=== PATIENT | male | born 1945 | race Caucasian/White ===

== ENCOUNTER 2022-06-25 09:51 | Inpatient (IN) ==
[2022-06-25 11:02] LABS: Partial Thromboplastin Ratio 0.9; Partial Thromboplastin Time 25.4 Seconds (21.0-31.0); Prothrombin Time 10.6 Seconds (9.0-12.0)
--- NOTE | 2022-06-25 11:02 | XRay Report ---
XR chest 1V portable HISTORY: Atypical Chest pain, nonspecific COMPARISON: Chest 10/22/2015. FINDINGS: No pneumothorax. No pleural effusions. The cortex remains enlarged. No new focal lung conso lidations to suggest a pneumonia. No evidence for pulmonary edema. There are poststernotomy changes. IMPRESSION: Stable cardiomegaly. Otherwise, no acute process within the chest. ACT 112: Negative or not required by law. Electronically signed by: Ori Delarosa M.D. 06/25/2022 11:01 AM
[2022-06-25 11:10] LABS: Albumin Globulin Ratio 1.1 (0.9-2); Albumin Level 4.1 gm/dl (3.4-5.0); BUN Creatinine Ratio 17.9 (10-20); Bilirubin,Total 0.5 mg/dl (0.2-1.0); Calcium 9.9 mg/dl (8.5-10.1); Creatinine Clr Calc Pharmacy 70.1 ml/min; Est GFR (African American) 89.1 ml/min; Est GFR (Non-African American) 76.9 ml/min; Globulin 3.8 gm/dl (2.5-4.0); Total Protein 7.9 gm/dl (6.0-8.3)
[2022-06-25 11:37] LABS: Basophils # (auto) 0.01 K/uL (0-0.2); Basophils % (auto) 0.1 %; Hematocrit (blood only) 40.5 % (40.1-51.0); Immature Granulocytes # (auto) 0.07 K/uL (0.00-0.02); Immature Granulocytes % (auto) 0.6 %; Lymphocytes # (auto) 1.62 K/uL (1.2-3.4); Lymphocytes % (auto) 14.5 %; Mean Corpuscular Hemoglobin 31.2 pg (25.0-34.0); Mean Corpuscular Hgb Conc 34.6 g/dL (32.0-36.0); Mean Corpuscular Volume 90.2 fL (80.0-100.0); Mean Platelet Volume 10.3 fL (9.4-12.4); Monocytes # (auto) 0.83 K/uL (0.24-0.82); Monocytes % (auto) 7.4 %; Neutrophils # (auto) 8.62 K/uL (1.4-6.5); Neutrophils % (auto) 77.4 %; Platelet Count 208 K/uL (130-400); RDW Coefficient of Variation 14.4 % (11.5-14.5); RDW Standard Deviation 48.1 fL (36.4-46.3); Red Blood Count 4.49 M/uL (4.63-6.08); White Blood Count 11.15 K/ul (4.8-10.8)
[2022-06-25 12:01] LABS: Troponin I High Sensitivity 1205.7 pg/ml (0-20)
--- NOTE | 2022-06-25 13:02 | History & Physical Report ---
Date of Service June 25, 2022 Assessment & Plan (1) Elevated troponin I level: Plan: Patient is 76 y/o M with PMH CAD s/p CABG x 4 in 2016 at [facility], mitral & aortic insufficiency, carotid artery stenosis, HTN, dyslipidemia, pre-diabetes, asthma, BPH, neuropathy, gout, obesity presented to ER secondary to abnormal labs - elevated outpatient Troponin T level of 405 from 06/24/22. 5-day history of URI symptoms. Denies chest pain In ER vital stable. Initial high-sensitivity troponin 1205. EKG sinus rhythm, rate 66, T wave inversion inferior leads, T wave abnormality anterior leads per my review. DDx: Demand ischemia, ACS, myocarditis Repeat EKG in am Will trend troponin Echo Continue aspirin, atorvastatin, and metoprolol succinate Cardiology consult. Recommends IV heparin for 48 hours (2) COVID-19: Plan: 5 days of chills, body aches, headache, nasal congestion, sore throat, brown productive cough, generalized weakness. History to COVID-19 vaccinations, no boosters Seen urgent care clinic yesterday and diagnosed with suspected COVID-19, pneumonia and was started on Z-Bladimir, prednisone, albuterol In ER positive COVID-19 PCR. Negative RSV and influenza PCR Not hypoxic CXR: No acute infiltrate DDx: Pneumonia Isolation precautions Blood cultures pending Procalcitonin pending Start Rocephin, doxycycline Dexamethasone daily incentive spirometer, flutter valve Supplemental oxygen as needed. Patient not currently hypoxic (3) CAD (coronary artery disease), [place] coronary artery: Plan: S/p CABG Continue aspirin, atorvastatin, metoprolol succinate Work-up as above (4) HTN (hypertension): Plan: Stable Continue metoprolol succinate (5) Dyslipidemia: Plan: Continue atorvastatin, ezetimibe (6) Intermittent asthma: Plan: Albuterol as needed (7) Gout: Plan: Continue allopurinol DVT Prophylaxis On IV Heparin Full Code as per discussion with pt Follows with Dr Torres for routine care Pt was seen and care coordinated with Dr Ellis. See addendum I spent total of 80 minutes of reviewing notes, outpatient records, labs, medications, coordinating, documenting, and providing care for this patient excluding time spent in the performance of separately billed services. History of Present Illness Chief Complaint: Abnormal labs Primary Care Provider: Jaycob Torres DO Patient is 76 y/o M with PMH CAD s/p CABG x 4 in 2016 at [facility], mitral & aortic insufficiency, carotid artery stenosis, HTN, dyslipidemia, pre-diabetes, asthma, BPH, neuropathy, gout, obesity presented to ER secondary to abnormal labs. Patient states on 06/20/2022 had onset of chills, body aches, headache, nasal congestion, sore throat, cough, generalized weakness. Reports cough productive of brown-colored sputum. Also reports "burning sensation to lungs" for the past 5 days. Denies any noted overt shortness of breath but feels like he has intermittent shallow breathing. Denies other chest pain. States has had 3 days of loose stools which has since resolved. Denies nausea, vomiting, abdominal pain. Denies palpitations, diaphoresis. He was seen at urgent care yesterday and had troponin level drawn. Troponin T result was 405. He was called today and told to go to ER for elevated troponin. He also had COVID-19 swab yesterday, however results are not available at this time for review. He was diagnosed with suspected COVID-19 and possible pneumonia and was started on Z-pack, prednisone 40mg po daily, and albuterol inhaler. Patient states initial illness onset he used Tylenol for one day and then switched to taking aspirin twice daily for fever and myalgias with some relief. Denies any known ill contacts, however was sitting in ER waiting room with his as a patient on 06/19/22 and is concerned may have caught something there. Reports 2 COVID-19 vaccines, no boosters. States had influenza vaccine this season. 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 Denies N/V, melena, hematochezia, syncope, vision changes, neck pain, orthopnea, palpitations, choking, otalgia, abdominal pain, paresthesias, extremity edema, rashes, dysuria, hematuria. Allergies Allergy/AdvReac Type Severity Reaction Status Date / Time lisinopril Allergy angioedmea Verified 06/25/22 12:51 rosuvastatin [From Crestor] AdvReac myalgias Verified 06/25/22 12:51 Acarides (Mites) Allergy Intermediate CONGESTION, Uncoded 10/22/15 13:48 ITCHY EYES, SNEEZING. Home Medications Medication Instructions Recorded Confirmed Type albuterol sulfate 90 mcg/actuation 2 puff inhalation Q4H PRN 06/25/22 06/25/22 History aerosol inhaler Shortness Of Breath Or Wheezing allopurinol 300 mg tablet 300 mg PO DAILY 06/25/22 06/25/22 History aspirin 81 mg tablet,delayed 81 mg PO DAILY 06/25/22 06/25/22 History release atorvastatin 80 mg tablet 80 mg PO DAILY 06/25/22 06/25/22 History azithromycin 250 mg tablet 250 mg PO DAILY 06/25/22 06/25/22 History ezetimibe 10 mg tablet 10 mg PO DAILY 06/25/22 06/25/22 History metoprolol succinate 100 mg 100 mg PO DAILY 06/25/22 06/25/22 History tablet,extended release 24 hr nitroglycerin 0.4 mg sublingual 0.4 mg sublingual UD 06/25/22 06/25/22 History tablet prednisone 20 mg tablet 40 mg PO DAILY 06/25/22 06/25/22 History Past Med/Surg History Medical History Aortic valve insufficiency CAD (coronary artery disease) Carotid stenosis Dyslipidemia Gout Hypertension Intermittent asthma Mitral insufficiency Surgical History Hx of CABG 2016. CABG x 4. [facility] Family History (Updated 06/25/22 @ 21:55 by Kaye Nixon PA-C) Other Cancer Diabetes Social History Smoking Status: Former smoker Tobacco Type: Cigarettes Preferred Language: Icelandic Communication Ability: Effective Manufacturing Engineering Technician Required: No Beliefs That Will Affect Care: None Current Living Situation: Spouse Feels Safe at Home: Yes Safety Concerns: Feels Safe At This Time Assistive Devices: None Review of Systems Review of Systems: All systems reviewed & are unremarkable except as noted in HPI & below Physical Exam Physical Exam: General: no distress, overweight Head: normocephalic, atraumatic Eyes: conjunctiva non-injected, anicteric ENT: normal inspection external ears, nose, mucous membranes moist Neck: supple, trachea midline Lungs: clear, no respiratory distress, no wheezing/rhonchi/rales CV: RRR, no murmur, no JVD, no pretibial edema Abd: normal BS, soft, non-tender Ext: no cyanosis, no calf tenderness Neuro: A&O x 3, no focal deficits noted, normal affect Skin: warm, dry Results & Data Results & Data ([facility]) Vital Signs (Past 12 Hours) Vital Signs Temp Pulse Resp BP Pulse Ox O2 Del Method 06/25/22 12:00 60 16 94 Room Air 06/25/22 12:00 134/78 06/25/22 11:30 62 20 92 Room Air 06/25/22 11:30 137/80 06/25/22 11:00 65 16 06/25/22 11:00 159/98 H 06/25/22 10:18 36.2 C L 66 20 147/93 H 95 Room Air Laboratory Results Short CBC 06/25/22 06/25/22 Range/Units 10:40 11:15 WBC Cancelled 11.15 H Hgb Cancelled 14.0 Hct Cancelled 40.5 Plt Count Cancelled 208 BMP 06/25/22 10:40 Sodium 137 Potassium 4.0 Chloride 102 Carbon Dioxide 26 BUN 17 Creatinine 0.95 Glucose 104 H Calcium 9.9 Liver Function 06/25/22 Range/Units 10:40 Total Bilirubin 0.5 (0.2-1.0) mg/dl AST 46 H (13-39) U/L ALT 32 (7-52) U/L Alkaline Phosphatase 90 (34-104) U/L Albumin 4.1 (3.4-5.0) gm/dl Diagnostic Findings Chest X-Ray 06/25/22 10:21 XR chest 1V portable HISTORY: Atypical Chest pain, nonspecific COMPARISON: Chest 10/22/2015. FINDINGS: No pneumothorax. No pleural effusions. The cortex remains enlarged. No new focal lung consolidations to suggest a pneumonia. No evidence for pulmonary edema. There are poststernotomy changes. IMPRESSION: Stable cardiomegaly. Otherwise, no acute process within the chest. ACT 112: Negative or not required by law. Electronically signed by: Ori Delarosa M.D. 06/25/2022 11:01 AM Supervising Physician Co-Signing Physician Notes Patient seen and examined by me, care coordinated with Fer Nixon PA-C, please refer to her note above for further detail. Pt is 76 y/o M with CAD s/p CABG x 4 in 2016 at [facility], mitral & aortic insufficiency, carotid artery stenosis, HTN, dyslipidemia, pre-diabetes, asthma, who presents from urgent care center due to elevated troponin. Patient had upper respiratory symptoms for past 5 days, reported burning sensation in lungs. However no chest pain. Patient found to be COVID-19 positive. Currently sitting up in bed, in no acute distress. He is awake alert oriented answers appropriately. On physical exam, heart sounds are regular. Lungs are mostly clear to auscultation, minimal crackles at left base. No wheezing. Abdomen is soft nontender nondistended. There is no significant lower extremity edema noted. Patient is moving extremities. Skin is warm dry well-perfused. Will treat with antibiotics for pneumonia, steroid for COVID-19. Given elevated troponin, discussed with cardiology, started on IV heparin for 48 hours. Patient is concerned about taking care of his , and would like to be discharged home as soon as safely possible. MD Rhonda
[2022-06-25] MEDS ORDERED: ASPIRIN 81 MG CHEW PO STA (13:50)
[2022-06-25] MEDS ORDERED: ASPIRIN CHEW 324 MG ONE (13:54)
--- NOTE | 2022-06-25 13:59 | Emergency Department Note ---
Impression & Plan Non-ST elevation (NSTEMI) myocardial infarction ED Provider Note INFORMANT: Patient ED PROVIDER(S): Wyatt Aldana DO CHIEF COMPLAINT: Elevated troponin PLAN: Disposition: Hospital admission Condition: Good Outpatient prescription management: none Referral: I spoke with the hospitalist, who will see the patient for admission/observation and further evaluation and consultation. MEDICAL DECISION MAKING: This is a 76-year-old male who presents to the ED with a chief complaint of an elevated troponin. The patient was seen at an outpatient urgent care yesterday and had a work-up for generalized weakness and cold symptoms. A troponin was ordered and it was elevated. I did review the [place] records from yesterday's visit. The patient troponin was 405. For this reason he was contacted today and told to come to the emergency department. He states that he was prescribed a Z-Bladimir as well as some prednisone for his upper respiratory infectious symptoms. He currently is only complaining of feeling a little weak. Denies any chest pains or shortness of breath at this time. His physical exam was unremarkable. His vital signs are stable. His EKG showed normal sinus rhythm at a rate of 66 with some T wave inversions inferiorly. Troponin was 1205. CBC was unremarkable. Chemistry panel was unremarkable. No significant anemia or electrolyte abnormality. I spoke with the hospitalist about the patient. The patient will be seen by the hospitalist for further inpatient evaluation and care. Triage Nursing notes reviewed. Vital Signs: reviewed Prior /Outside records reviewed: none Differential diagnosis: Differential includes acute coronary syndrome, myocardial infarction, CVA, TIA, anemia, infection, pneumonia, UTI, pyelonephritis, poor nutrition, dehydration, electrolyte disturbance,hypoglycemia. Diagnostics, as interpreted by me: 12 lead ECG: Normal sinus rhythm at a rate of 66 with inferior T wave inversions. No ST elevation. No PVCs. Normal QTC. Cardiac Monitoring: Normal sinus rhythm Medical decision rules: none Imaging studies: Chest x-ray: No acute disease. No pneumonia or pneumothorax. Procedures: none. Critical care: none. HPI: This is a 76-year-old male who presents to the ED with a chief complaint of an elevated troponin. The patient was seen at an outpatient urgent care yesterday and had a work-up for generalized weakness and cold symptoms. A troponin was ordered and it was elevated. I did review the [facility] records from yesterday's visit. The patient troponin was 405. For this reason he was contacted today and told to come to the emergency department. He states that he was prescribed a Z-Bladimir as well as some prednisone for his upper respiratory infectious symptoms. He currently is only complaining of feeling a little weak. PAST MEDICAL HISTORY: See Below PAST SURGICAL HISTORY: See Below SOCIAL HISTORY: See Below HOME MEDICATIONS: See Below ALLERGIES: See Below VITALS: See Below PHYSICAL EXAMINATION: CONSTITUTIONAL/VITAL SIGNS: Reviewed GENERAL: Non-toxic in appearance. INTEGUMENTARY: Warm, dry, and [place]. HEAD: Normocephalic. EYES: without scleral icterus. ENT/OROPHARYNX: clear and moist. RESPIRATORY: No increased work of breathing. Lungs clear. CARDIOVASCULAR: Regular rate. Regular rhythm. GI/ABDOMEN: Soft and nontender. . EXTREMITIES: Normal BACK: Normal. NEUROLOGICAL: Intact without focal deficits. PSYCHIATRIC: Normal affect. MUSCULOSKELETAL: Normal. TRIAGE NURSING DOCUMENTATION REVIEWED. Past Med/Surg History Social History Smoking Status: Former smoker Tobacco Type: Cigarettes Feels Safe at Home: Yes Allergies Allergies Allergy/AdvReac Type Severity Reaction Status Date / Time lisinopril Allergy angioedmea Verified 06/25/22 12:51 rosuvastatin [From Crestor] AdvReac myalgias Verified 06/25/22 12:51 Acarides (Mites) Allergy Intermediate CONGESTION, Uncoded 10/22/15 13:48 ITCHY EYES, SNEEZING. Home Meds Home Medications Medication Instructions Recorded Confirmed Allopurinol (Zyloprim *) 100 mg PO DAILY ##0 09/19/06 ATORVASTATIN (LIPITOR) 20 mg PO DAILY #0 tabs 10/22/15 Albuterol Inhaler (VENTOLIN 2 puff inhalation QID PRN 10/22/15 INHALER) SOB/Wheezing #5 Inhalers CHOLECALCIFEROL (VITAMIN D3) 1 tab PO DAILY 90 days #90 tabs 10/22/15 Coenzyme Q10 (Ubidecarenone) 200 mg PO DAILY ##0 10/22/15 (Coq-10 100 mg) Lisinopril 2.5 mg PO DAILY ##0 10/22/15 Loratadine (Claritin) 10 mg PO DAILY #0 tabs 05/04/16 VITAMIN B CMPLX/VITC/FOLIC AC 1 cap PO DAILY 90 days #90 caps 10/22/15 (Nephrocaps) ASPIRIN (ASPIR-81) 1 tab PO DAILY 30 days #30 tabs 12/25/15 Results & Data (ED) Vital Signs Vital Signs - 24 hr 06/25/22 10:18 06/25/22 11:00 06/25/22 11:00 Temperature 36.2 C L Temperature Source Temporal Artery Scan Pulse Rate 66 65 Pulse Rate from SpO2 Sensor Respiratory Rate 20 16 Respiratory Effort / Characteristics Non-Labored Respiratory Depth Normal Blood Pressure 147/93 H 159/98 H Blood Pressure Mean 111 118 Pulse Oximetry 95 Oxygen Delivery Method Room Air Sepsis Recent Fever Within 48 Hours No Sepsis New/Unexplained Change in Mental Status N/A Sepsis Action Taken by Nursing No Action Required 06/25/22 11:30 06/25/22 11:30 06/25/22 12:00 Temperature Temperature Source Pulse Rate 62 Pulse Rate from SpO2 Sensor 62 Respiratory Rate 20 Respiratory Effort / Characteristics Respiratory Depth Blood Pressure 137/80 134/78 Blood Pressure Mean 99 96 Pulse Oximetry 92 Oxygen Delivery Method Room Air Sepsis Recent Fever Within 48 Hours Sepsis New/Unexplained Change in Mental Status Sepsis Action Taken by Nursing 06/25/22 12:00 06/25/22 12:30 06/25/22 12:30 Temperature Temperature Source Pulse Rate 60 58 L Pulse Rate from SpO2 Sensor 60 58 L Respiratory Rate 16 17 Respiratory Effort / Characteristics Respiratory Depth Blood Pressure 115/78 Blood Pressure Mean 90 Pulse Oximetry 94 96 Oxygen Delivery Method Room Air Sepsis Recent Fever Within 48 Hours Sepsis New/Unexplained Change in Mental Status Sepsis Action Taken by Nursing 06/25/22 13:00 06/25/22 13:00 06/25/22 13:30 Temperature Temperature Source Pulse Rate 56 L Pulse Rate from SpO2 Sensor 55 L Respiratory Rate 16 Respiratory Effort / Characteristics Respiratory Depth Blood Pressure 122/72 140/88 Blood Pressure Mean 88 105 Pulse Oximetry 95 Oxygen Delivery Method Sepsis Recent Fever Within 48 Hours Sepsis New/Unexplained Change in Mental Status Sepsis Action Taken by Nursing 06/25/22 13:30 Temperature Temperature Source Pulse Rate 60 Pulse Rate from SpO2 Sensor 59 L Respiratory Rate 19 Respiratory Effort / Characteristics Respiratory Depth Blood Pressure Blood Pressure Mean Pulse Oximetry 93 Oxygen Delivery Method Sepsis Recent Fever Within 48 Hours Sepsis New/Unexplained Change in Mental Status Sepsis Action Taken by Nursing Laboratory Data 06/25/22 11:15 06/25/22 10:40 Lab Results 06/25/22 06/25/22 06/25/22 Range/Units 10:40 10:40 10:40 WBC Cancelled RBC Cancelled Hgb Cancelled Hct Cancelled MCV Cancelled MCH Cancelled MCHC Cancelled RDW Std Deviation Cancelled RDW Coeff of Taya Cancelled Plt Count Cancelled MPV Cancelled Immature Gran % (Auto) Cancelled Neut % (Auto) Cancelled Lymph % (Auto) Cancelled Hubbard % (Auto) Cancelled Eos % (Auto) Cancelled Baso % (Auto) Cancelled Neut # (Auto) Cancelled Lymph # (Auto) Cancelled Hubbard # (Auto) Cancelled Eos # (Auto) Cancelled Baso # (Auto) Cancelled Immature Gran # (Auto) Cancelled Absolute Nucleated RBC Cancelled Nucleated RBC % (auto) Cancelled Neutrophils % (Manual) Cancelled Band Neutrophils % Cancelled Lymphocytes % (Manual) Cancelled Prolymphocyte % Cancelled Reactive Lymphs % (Man) Cancelled Monocytes % (Manual) Cancelled Eosinophils % (Manual) Cancelled Basophils % (Manual) Cancelled Metamyelocytes % (Man) Cancelled Myelocytes % (Man) Cancelled Promyelocytes % (Man) Cancelled Blast Cells % (Manual) Cancelled Plasma Cell % (Manual) Cancelled Other Cells % Cancelled Nucleated RBC % Cancelled Neutrophils # (Manual) Cancelled Band Neutrophils # Cancelled Total Absolute Neuts Cancelled Lymphocytes # (Manual) Cancelled Prolymphocyte # Cancelled Reactive Lymphs # Cancelled Total Abs Lymphocytes Cancelled Monocytes # (Manual) Cancelled Eosinophils # (Manual) Cancelled Basophils # (Manual) Cancelled Metamyelocytes # (Man) Cancelled Myelocytes # (Manual) Cancelled Promyelocytes # (Man) Cancelled Blast Cells # (Man) Cancelled Plasma Cell # (Manual) Cancelled Other Cells # Cancelled Nucleated RBCs # (Man) Cancelled Hypersegmented Neuts Cancelled Hyposegmented Neuts Cancelled Hypogranular Neuts Cancelled Large Granular Lymphs Cancelled # Lrg Granular Lymphs Cancelled Hairy Cells Cancelled Smudge Cells Cancelled Toxic Granulation Cancelled Toxic Vacuolation Cancelled Dohle Bodies Cancelled Christiano Rods Cancelled Platelet Estimate Cancelled Hypogranular Platelets Cancelled Clumped Platelets Cancelled Giant Platelets Cancelled Platelet Satelliting Cancelled RBC Morphology Cancelled Polychromasia Cancelled Hypochromasia Cancelled Poikilocytosis Cancelled Basophilic Stippling Cancelled Anisocytosis Cancelled Microcytosis Cancelled Macrocytosis Cancelled Spherocytes Cancelled Pappenheimer Bodies Cancelled Sickle Cells Cancelled Target Cells Cancelled Tear Drop Cells Cancelled Ovalocytes Cancelled Stomatocytes Cancelled Renae-Summerfield Bodies Cancelled Echinocytes Cancelled Acanthocytes (Spur) Cancelled Rouleaux Cancelled RBC Agglutinates Cancelled Schistocytes Cancelled Sezary Cell Cancelled PT 10.6 (9.0-12.0) Seconds INR 1.0 (0.9-1.1) APTT 25.4 (21.0-31.0) Seconds PTT Ratio 0.9 Sodium 137 (136-145) mmol/L Potassium 4.0 (3.5-5.1) mmol/L Chloride 102 (98-107) mmol/L Carbon Dioxide 26 (21-32) mmol/L Anion Gap 9 (3-11) BUN 17 (6-23) mg/dl Creatinine 0.95 (0.6-1.4) mg/dl Est Cr Clr Drug Dosing 70.1 ml/min Est GFR ( Amer) 89.1 ml/min Est GFR (Non-Af Amer) 76.9 ml/min BUN/Creatinine Ratio 17.9 (10-20) Glucose 104 H (70-99(Fasting)) mg/dl Calcium 9.9 (8.5-10.1) mg/dl Total Bilirubin 0.5 (0.2-1.0) mg/dl AST 46 H (13-39) U/L ALT 32 (7-52) U/L Alkaline Phosphatase 90 (34-104) U/L Troponin I High Sens 1205.7 H* (0-20) pg/ml Total Protein 7.9 (6.0-8.3) gm/dl Albumin 4.1 (3.4-5.0) gm/dl Globulin 3.8 (2.5-4.0) gm/dl Albumin/Globulin Ratio 1.1 (0.9-2) Blood Parasites ID Cancelled 06/25/22 Range/Units 11:15 WBC 11.15 H RBC 4.49 L Hgb 14.0 Hct 40.5 MCV 90.2 MCH 31.2 MCHC 34.6 RDW Std Deviation 48.1 H RDW Coeff of Taya 14.4 Plt Count 208 MPV 10.3 Immature Gran % (Auto) 0.6 Neut % (Auto) 77.4 Lymph % (Auto) 14.5 Hubbard % (Auto) 7.4 Eos % (Auto) 0.0 Baso % (Auto) 0.1 Neut # (Auto) 8.62 H Lymph # (Auto) 1.62 Hubbard # (Auto) 0.83 H Eos # (Auto) 0.00 Baso # (Auto) 0.01 Immature Gran # (Auto) 0.07 H Absolute Nucleated RBC Nucleated RBC % (auto) Neutrophils % (Manual) Band Neutrophils % Lymphocytes % (Manual) Prolymphocyte % Reactive Lymphs % (Man) Monocytes % (Manual) Eosinophils % (Manual) Basophils % (Manual) Metamyelocytes % (Man) Myelocytes % (Man) Promyelocytes % (Man) Blast Cells % (Manual) Plasma Cell % (Manual) Other Cells % Nucleated RBC % Neutrophils # (Manual) Band Neutrophils # Total Absolute Neuts Lymphocytes # (Manual) Prolymphocyte # Reactive Lymphs # Total Abs Lymphocytes Monocytes # (Manual) Eosinophils # (Manual) Basophils # (Manual) Metamyelocytes # (Man) Myelocytes # (Manual) Promyelocytes # (Man) Blast Cells # (Man) Plasma Cell # (Manual) Other Cells # Nucleated RBCs # (Man) Hypersegmented Neuts Hyposegmented Neuts Hypogranular Neuts Large Granular Lymphs # Lrg Granular Lymphs Hairy Cells Smudge Cells Toxic Granulation Toxic Vacuolation Dohle Bodies Christiano Rods Platelet Estimate Hypogranular Platelets Clumped Platelets Giant Platelets Platelet Satelliting RBC Morphology Polychromasia Hypochromasia Poikilocytosis Basophilic Stippling Anisocytosis Microcytosis Macrocytosis Spherocytes Pappenheimer Bodies Sickle Cells Target Cells Tear Drop Cells Ovalocytes Stomatocytes Renae-Summerfield Bodies Echinocytes Acanthocytes (Spur) Rouleaux RBC Agglutinates Schistocytes Sezary Cell PT (9.0-12.0) Seconds INR (0.9-1.1) APTT (21.0-31.0) Seconds PTT Ratio Sodium (136-145) mmol/L Potassium (3.5-5.1) mmol/L Chloride (98-107) mmol/L Carbon Dioxide (21-32) mmol/L Anion Gap (3-11) BUN (6-23) mg/dl Creatinine (0.6-1.4) mg/dl Est Cr Clr Drug Dosing ml/min Est GFR ( Amer) ml/min Est GFR (Non-Af Amer) ml/min BUN/Creatinine Ratio (10-20) Glucose (70-99(Fasting)) mg/dl Calcium (8.5-10.1) mg/dl Total Bilirubin (0.2-1.0) mg/dl AST (13-39) U/L ALT (7-52) U/L Alkaline Phosphatase (34-104) U/L Troponin I High Sens (0-20) pg/ml Total Protein (6.0-8.3) gm/dl Albumin (3.4-5.0) gm/dl Globulin (2.5-4.0) gm/dl Albumin/Globulin Ratio (0.9-2) Blood Parasites ID Imaging Data Radiologist's Impression: Chest X-Ray 06/25/22 10:21 XR chest 1V portable HISTORY: Atypical Chest pain, nonspecific COMPARISON: Chest 10/22/2015. FINDINGS: No pneumothorax. No pleural effusions. The cortex remains enlarged. No new focal lung consolidations to suggest a pneumonia. No evidence for pulmonary edema. There are poststernotomy changes. IMPRESSION: Stable cardiomegaly. Otherwise, no acute process within the chest. ACT 112: Negative or not required by law. Electronically signed by: Ori Delarosa M.D. 06/25/2022 11:01 AM Discharge Plan Visit Data Chief Complaint: Abnormal Labs/Diagnostic Testing Stated Complaint: ADNORMAL LAB WORK , REF OVER ED Provider: Wyatt Aldana Discharge Problem: Non-ST elevation (NSTEMI) myocardial infarction Patient Disposition: Being Evaluated by Hospitalist Forms Stand Alone Forms: My [facility] Prescriptions Prescriptions: No Action Allopurinol (Zyloprim *) 100 MG tablet 100 mg PO DAILY Qty: 0 CHOLECALCIFEROL (VITAMIN D3) 1,000 UNIT tablet 1 tab PO DAILY 90 Days Qty: 90 Coenzyme Q10 (Ubidecarenone) (Coq-10 100 mg) 1 CAP capsule 200 mg PO DAILY Qty: 0 Lisinopril 10 MG tablet 2.5 mg PO DAILY Qty: 0 Loratadine (Claritin) 10 MG tablet 10 mg PO DAILY Qty: 0 VITAMIN B CMPLX/VITC/FOLIC AC (Nephrocaps) capsule 1 cap PO DAILY 90 Days Qty: 90 ATORVASTATIN (LIPITOR) 20 MG tablet 20 mg PO DAILY Qty: 0 Albuterol Inhaler (VENTOLIN INHALER) AEROSOL,SOLN 2 puff Inhalation QID PRN (Reason: SOB/Wheezing) Qty: 5 ASPIRIN (ASPIR-81) 81 MG tablet 1 tab PO DAILY 30 Days Qty: 30 Referrals Referrals: Jaycob Torres DO [Primary Care Provider] -
[2022-06-25] MEDS ORDERED: cefTRIAXone SODIUM 2,000 MG in DEXTROSE 5% AD-VAN 50 ML IV STA (14:31)
[2022-06-25] MEDS ORDERED: dexAMETHasone 6 MG in SYRINGE 0 ML IV ONE (14:35)
[2022-06-25] MEDS ORDERED: cefTRIAXone SODIUM 2,000 MG/70 ML BAG IV STA (14:36)
[2022-06-25 15:25] LABS: Influenza A virus by PCR Negative (Neg); Influenza B virus by PCR Negative (Neg); RSV by PCR Negative (Neg)
[2022-06-25 15:41] LABS: SARS CoV2 RNA(COVID-19) Ceph POSITIVE (Negative)
--- NOTE | 2022-06-25 16:06 | Electrocardiogram Report ---
Test Reason : Blood Pressure : / mmHG Vent. Rate : 066 BPM Atrial Rate : 066 BPM P-R Int : 144 ms QRS Dur : 094 ms QT Int : 424 ms P-R-T Axes : 041 053 -18 degrees QTc Int : 444 ms Normal sinus rhythm T wave abnormality, consider inferior ischemia Abnormal ECG When compared with ECG of 23-OCT-2015 07:39, Inverted T waves have replaced nonspecific T wave abnormality in Inferior leads T wave inversion less evident in Anterior leads Confirmed by Ismael Zhao ([id number]) on 06/25/2022 4:06:10 PM Referred By: Confirmed By:Ismael Zhao
[2022-06-25] MEDS ORDERED: Heparin IV Adult Wt-Based Standard *NO* Bolus Protocol IV STA (16:37)
--- NOTE | 2022-06-25 16:47 | Cardiology Consultation ---
Date of Consultation June 25, 2022 Assessment & Plan (1) COVID-19: (2) Elevated troponin I level: (3) CAD (coronary artery disease), [place] coronary artery: Plan 76-year-old patient referred to the ER due to elevated troponin. Diagnosed with acute COVID-19 infection. Troponin elevated however trending downward. He is without anginal symptoms. ECG with inferior T wave abnormality. Demand ischemia in the setting of acute COVID-19 infectious process, direct inflammatory process, or ACS considered. Recommend 48 hours of IV heparin. Continue other cardiac medications including high intensity statin therapy, metoprolol succinate, and low-dose aspirin. Repeat ECG in a.m. Resting 2D transthoracic echocardiogram can be performed in a.m. for assessment of left ventricular systolic function and LV wall motion. History of Present Illness Reason for Consultation: Elevated troponin Requesting Physician: Dr. Ellis Attending Physician: Dr. Ellis History of Present Illness 76-year-old patient referred for evaluation due to elevated troponin. Evaluated in urgent care center yesterday due to generalized feeling of unwellness. diagnosed with COVID-19 on . He has not been feeling well since Tuesday. Notes cough without sputum production, mild shortness of breath, fatigue, and lethargy. Denies any chest discomfort. No orthopnea, PND, or lower extremity edema. Denies palpitations, lightheadedness, dizziness, syncope, or near syncope. Currently resting comfortably. Oxygen saturation 95% on room air. Anxious to return home as soon as possible to care for his with dementia. Offers no other concerns/complaints. Complex cardiovascular history listed below is copied from the [facility] record. Cardiac history: 1. Multivessel coronary artery disease including left main disease status post CABG x4 on October 24, 2015, by Dr. Allen at [facility], receiving a JOSHUA-LAD, Ao-OM1, Ao-D1, Ao-PDA 2. Preserved LV function 3. Nonrheumatic mitral and aortic insufficiency 4. Carotid artery stenosis, asymptomatic, without infarct 5. Hypertension 6. Dyslipidemia 7. Impaired fasting glucose, prediabetes Allergies Allergy/AdvReac Type Severity Reaction Status Date / Time lisinopril Allergy angioedmea Verified 06/25/22 12:51 rosuvastatin [From Crestor] AdvReac myalgias Verified 06/25/22 12:51 Acarides (Mites) Allergy Intermediate CONGESTION, Uncoded 10/22/15 13:48 ITCHY EYES, SNEEZING. Home Medications Medication Instructions Recorded Confirmed Type albuterol sulfate 90 mcg/actuation 2 puff inhalation Q4H PRN 06/25/22 06/25/22 History aerosol inhaler Shortness Of Breath Or Wheezing allopurinol 300 mg tablet 300 mg PO DAILY 06/25/22 06/25/22 History aspirin 81 mg tablet,delayed 81 mg PO DAILY 06/25/22 06/25/22 History release atorvastatin 80 mg tablet 80 mg PO DAILY 06/25/22 06/25/22 History azithromycin 250 mg tablet 250 mg PO DAILY 06/25/22 06/25/22 History ezetimibe 10 mg tablet 10 mg PO DAILY 06/25/22 06/25/22 History metoprolol succinate 100 mg 100 mg PO DAILY 06/25/22 06/25/22 History tablet,extended release 24 hr nitroglycerin 0.4 mg sublingual 0.4 mg sublingual UD 06/25/22 06/25/22 History tablet prednisone 20 mg tablet 40 mg PO DAILY 06/25/22 06/25/22 History Patient History Medical History Aortic valve insufficiency CAD (coronary artery disease) Carotid stenosis Dyslipidemia Gout Hypertension Intermittent asthma Mitral insufficiency Surgical History Hx of CABG 2016. CABG x 4. [facility] [place] Social History Smoking Status: Former smoker Tobacco Type: Cigarettes Feels Safe at Home: Yes Review of Systems Review of Systems: All systems reviewed & are unremarkable except as noted in Subjective Physical Exam Constitutional: well nourished and + obese; no acute distress Respiratory: normal respiratory effort; no respiratory distress, no labored breathing and no retractions Auscultation: no crackles (Scant crackles at the left base), no rhonchi and no wheezes Cardiovascular: Rate/Rhythm: regular rate and regular rhythm Heart Sounds: normal S1 and normal S2; no murmur Vessels: no JVD and no carotid bruit Extremities: no edema Gastrointestinal (Abdomen): Inspection/Auscultation: normal bowel sounds; abdomen not distended Percussion/Palpation: abdomen soft; abdomen nontender, no guarding and abdomen not rigid Neurologic: CN's II-XI intact bilaterally and moves all extremities; no focal motor deficits Psychiatric: A+Ox3, euthymic affect Results & Data ([facility]) Vital Signs (Past 12 Hours) Vital Signs Temp Pulse Resp BP Pulse Ox O2 Del Method 06/25/22 15:30 54 L 13 95 Room Air 06/25/22 15:00 57 L 16 95 06/25/22 14:30 62 21 89 L 06/25/22 14:00 59 L 16 94 06/25/22 14:00 146/79 H 06/25/22 13:30 60 19 93 06/25/22 13:30 140/88 06/25/22 13:00 56 L 16 95 06/25/22 13:00 122/72 06/25/22 12:30 58 L 17 96 06/25/22 12:30 115/78 06/25/22 12:00 60 16 94 Room Air 06/25/22 12:00 134/78 06/25/22 11:30 62 20 92 Room Air 06/25/22 11:30 137/80 06/25/22 11:00 65 16 06/25/22 11:00 159/98 H 06/25/22 10:18 36.2 C L 66 20 147/93 H 95 Room Air
[2022-06-25] MEDS ORDERED: HEPARIN 25000 UNIT/500 ML D5W IV ONE (17:13)
[2022-06-25] MEDS: HEPARIN SODIUM/DEXTROSE 25,000 UNITS/500 ML BAG IV SCH (17:18)
[2022-06-25] MEDS ORDERED: POLYETHYLENE (MIRALAX) 17 GM PACK PO PRN (17:41)
[2022-06-25] MEDS ORDERED: NITROGLYCERIN SL 0.4 MG/TAB TAB SL PRN (17:41)
[2022-06-25] MEDS ORDERED: ACETAMINOPHEN 325 MG TAB PO PRN (17:41)
[2022-06-25] MEDS: DOXYCYCLINE HYCLATE 100 MG CAP PO SCH (20:06)
[2022-06-25 23:59] LABS: Partial Thromboplastin Ratio 4.3
[2022-06-26 00:11] LABS: Partial Thromboplastin Time 117.1 Seconds (21.0-31.0)
[2022-06-26] MEDS: DOXYCYCLINE HYCLATE 100 MG CAP PO SCH ×2 (08:26→20:26)
[2022-06-26] MEDS: allopurinoL 300 MG TAB PO SCH (08:26)
[2022-06-26] MEDS: ATORVASTATIN 40 MG TAB PO SCH (08:26)
[2022-06-26] MEDS: EZETIMIBE 10 MG TABLET PO SCH (08:26)
[2022-06-26] MEDS: METOPROLOL SUCC 50MG EXT REL TAB PO SCH (08:26)
[2022-06-26] MEDS: ASPIRIN 81 MG ECTAB PO SCH (08:26)
[2022-06-26 08:36] LABS: Basophils # (auto) 0.02 K/uL (0-0.2); Basophils % (auto) 0.1 %; Hematocrit (blood only) 42.5 % (40.1-51.0); Hemoglobin 14.5 g/dl (14.0-18.0); Immature Granulocytes # (auto) 0.09 K/uL (0.00-0.02); Immature Granulocytes % (auto) 0.5 %; Lymphocytes % (auto) 14.9 %; Mean Corpuscular Hemoglobin 30.9 pg (25.0-34.0); Mean Corpuscular Hgb Conc 34.1 g/dL (32.0-36.0); Mean Corpuscular Volume 90.4 fL (80.0-100.0); Mean Platelet Volume 10.6 fL (9.4-12.4); Monocytes # (auto) 1.26 K/uL (0.24-0.82); Monocytes % (auto) 7.5 %; Neutrophils # (auto) 12.88 K/uL (1.4-6.5); Platelet Count 220 K/uL (130-400); RDW Coefficient of Variation 14.6 % (11.5-14.5); RDW Standard Deviation 48.8 fL (36.4-46.3); White Blood Count 16.75 K/ul (4.8-10.8)
[2022-06-26] MEDS: dexAMETHasone 6 MG in SYRINGE 0 ML IV SCH (09:10)
[2022-06-26] MEDS: cefTRIAXone SODIUM 2,000 MG in DEXTROSE 5% 50 ML IV SCH (09:10)
[2022-06-26 09:14] LABS: Partial Thromboplastin Time 136.9 Seconds (21.0-31.0)
[2022-06-26 10:05] LABS: Albumin Globulin Ratio 1.1 (0.9-2); Albumin Level 3.8 gm/dl (3.4-5.0); BUN Creatinine Ratio 23.4 (10-20); Bilirubin,Total 0.4 mg/dl (0.2-1.0); Calcium 9.7 mg/dl (8.5-10.1); Chol HDL Ratio 3.6 (0-5); Creatinine Clr Calc Pharmacy 70.7 ml/min; Est GFR (African American) 90.3 ml/min; Est GFR (Non-African American) 77.9 ml/min; Globulin 3.6 gm/dl (2.5-4.0); Potassium 4.4 mmol/L (3.5-5.1); Total Protein 7.4 gm/dl (6.0-8.3)
--- NOTE | 2022-06-26 10:09 | Hospitalist Progress Note ---
Date of Service June 26, 2022 Assessment & Plan (1) Elevated troponin I level: Plan: Patient is 76 y/o M with PMH CAD s/p CABG x 4 in 2016 at [facility] [place], mitral & aortic insufficiency, carotid artery stenosis, HTN, dyslipidemia, pre-diabetes, asthma, BPH, neuropathy, gout, obesity presented to ER secondary to abnormal labs - elevated outpatient Troponin T level of 405 from 06/24/22. 5-day history of URI symptoms. Denies chest pain In ER vital stable. Initial high-sensitivity troponin 1205. EKG sinus rhythm, rate 66, T wave inversion inferior leads, T wave abnormality anterior leads per my review. DDx: Demand ischemia, ACS, myocarditis troponin is downtrending Echo obtained LV chamber size with moderate concentric LVH. Normal LV systolic function, EF 55 to 60%. No segmental LV wall motion abnormalities are noted. Grade 2 diastolic dysfunction. Aortic valve sclerosis moderate, without significant aortic valvular stenosis. Mild aortic regurg. There is moderate mitral annular calcification. Mitral valve leaflets appear thickened, but open well. There is moderate mitral regurg. Mild biatrial enlargement. Moderate tricuspid regurg. PA systolic pressure of 38 mmHg. Continue aspirin, atorvastatin, and metoprolol succinate Cardiology consult. Recommends IV heparin for 48 hours (2) COVID-19: Plan: 5 days of chills, body aches, headache, nasal congestion, sore throat, brown productive cough, generalized weakness. History to COVID-19 vaccinations, no boosters Seen urgent care clinic and diagnosed with suspected COVID-19, pneumonia and was started on Z-Bladimir, prednisone, albuterol In ER positive COVID-19 PCR. Negative RSV and influenza PCR Not hypoxic CXR: No acute infiltrate DDx: Pneumonia Isolation precautions Blood cultures pending Procalcitonin negative Started Rocephin, doxycycline - continue Dexamethasone daily incentive spirometer, flutter valve Supplemental oxygen as needed. Patient not currently hypoxic (3) CAD (coronary artery disease), [place] coronary artery: Plan: S/p CABG Continue aspirin, atorvastatin, metoprolol succinate Work-up as above (4) HTN (hypertension): Plan: Stable Continue metoprolol succinate (5) Dyslipidemia: Plan: Continue atorvastatin, ezetimibe (6) Intermittent asthma: Plan: Albuterol as needed (7) Gout: Plan: Continue allopurinol DVT Prophylaxis On IV Heparin Full Code as per discussion with pt Follows with Dr Torres for routine care Admission and Anticipated Discharge Date Admission Date: June 25, 2022 Subjective Patient seen in follow-up of COVID-19 pneumonia, elevated troponin Started on IV heparin on admission Currently sitting up in bed, in no acute distress Reports feeling better Denies chest pain Denies shortness of breath, he does have some cough Review of Systems Review of Systems: All systems reviewed & are unremarkable except as noted in Subjective Physical Exam Physical Exam: General: no distre ss, overweight Hea d: normocephalic, atraumatic Eyes: c onjunctiva non-inj ected, anicteric E NT: normal inspect ion external ears, nose, mucous memb ranes moist Neck: supple, trachea mi dline Lungs: clear , no respiratory d istress, no wheezi ng/rhonchi/rales C V: RRR, no murmur, no JVD, no pretib ial edema Abd: nor mal BS, soft, non- tender Ext: no cya nosis, no calf ten derness Neuro: A&O x 3, no focal def icits noted, karen l affect Skin: war m, dry Results & Data Results & Data ([facility]) Vital Signs (Past 12 Hours) Vital Signs Temp Pulse Pulse Resp BP Pulse Ox O2 Del Method 06/26/22 09:00 55 L 06/26/22 09:00 Room Air 06/26/22 08:24 36.8 C 67 18 151/89 H 93 Room Air 06/26/22 04:35 36.5 C 62 16 144/82 H 92 Room Air 06/26/22 01:44 58 L 06/25/22 23:43 36.5 C 54 L 18 130/83 93 Room Air Laboratory Results 06/26/22 06/26/22 06/26/22 Range/Units 08:07 08:07 08:07 WBC RBC Hgb Hct MCV MCH MCHC RDW Std Deviation RDW Coeff of Taya Plt Count MPV Immature Gran % (Auto) Neut % (Auto) Lymph % (Auto) Forest % (Auto) Eos % (Auto) Baso % (Auto) Neut # (Auto) Lymph # (Auto) Forest # (Auto) Eos # (Auto) Baso # (Auto) Immature Gran # (Auto) Absolute Nucleated RBC Nucleated RBC % (auto) Neutrophils % (Manual) Band Neutrophils % Lymphocytes % (Manual) Prolymphocyte % Reactive Lymphs % (Man) Monocytes % (Manual) Eosinophils % (Manual) Basophils % (Manual) Metamyelocytes % (Man) Myelocytes % (Man) Promyelocytes % (Man) Blast Cells % (Manual) Plasma Cell % (Manual) Other Cells % Nucleated RBC % Neutrophils # (Manual) Band Neutrophils # Total Absolute Neuts Lymphocytes # (Manual) Prolymphocyte # Reactive Lymphs # Total Abs Lymphocytes Monocytes # (Manual) Eosinophils # (Manual) Basophils # (Manual) Metamyelocytes # (Man) Myelocytes # (Manual) Promyelocytes # (Man) Blast Cells # (Man) Plasma Cell # (Manual) Other Cells # Nucleated RBCs # (Man) Hypersegmented Neuts Hyposegmented Neuts Hypogranular Neuts Large Granular Lymphs # Lrg Granular Lymphs Hairy Cells Smudge Cells Toxic Granulation Toxic Vacuolation Dohle Bodies Christiano Rods Platelet Estimate Hypogranular Platelets Clumped Platelets Giant Platelets Platelet Satelliting RBC Morphology Polychromasia Hypochromasia Poikilocytosis Basophilic Stippling Anisocytosis Microcytosis Macrocytosis Spherocytes Pappenheimer Bodies Sickle Cells Target Cells Tear Drop Cells Ovalocytes Stomatocytes Renae-Covenant Life Bodies Echinocytes Acanthocytes (Spur) Rouleaux RBC Agglutinates Schistocytes Sezary Cell PT (9.0-12.0) Seconds INR (0.9-1.1) APTT 136.9 H* (21.0-31.0) Seconds PTT Ratio 5.0 Sodium 140 (136-145) mmol/L Potassium 4.4 (3.5-5.1) mmol/L Chloride 104 (98-107) mmol/L Carbon Dioxide 26 (21-32) mmol/L Anion Gap 10 (3-11) BUN 22 (6-23) mg/dl Creatinine 0.94 (0.6-1.4) mg/dl Est Cr Clr Drug Dosing 70.7 ml/min Est GFR ( Amer) 90.3 ml/min Est GFR (Non-Af Amer) 77.9 ml/min BUN/Creatinine Ratio 23.4 H (10-20) Glucose 128 H (70-99(Fasting)) mg/dl Estimat Average Glucose Pending Hemoglobin A1c Pending Calcium 9.7 (8.5-10.1) mg/dl Total Bilirubin 0.4 (0.2-1.0) mg/dl AST 34 (13-39) U/L ALT 29 (7-52) U/L Alkaline Phosphatase 81 (34-104) U/L Troponin I High Sens (0-20) pg/ml Total Protein 7.4 (6.0-8.3) gm/dl Albumin 3.8 (3.4-5.0) gm/dl Globulin 3.6 (2.5-4.0) gm/dl Albumin/Globulin Ratio 1.1 (0.9-2) Triglycerides 88 (0-150) mg/dl Cholesterol 137 (0-200) mg/dl LDL Cholesterol, Calc 81 mg/dl VLDL Cholesterol, Calc 18 (0-30) mg/dl HDL Cholesterol 38 mg/dl Cholesterol/HDL Ratio 3.6 (0-5) Procalcitonin (0-0.5) ng/ml SARS-CoV-2 (PCR) (Negative) Influenza Type A (PCR) (Neg) Influenza Type B (PCR) (Neg) RSV (RT-PCR) (Neg) Blood Parasites ID 06/26/22 06/25/22 06/25/22 Range/Units 08:07 23:18 14:05 WBC 16.75 H RBC 4.70 Hgb 14.5 Hct 42.5 MCV 90.4 MCH 30.9 MCHC 34.1 RDW Std Deviation 48.8 H RDW Coeff of Taya 14.6 H Plt Count 220 MPV 10.6 Immature Gran % (Auto) 0.5 Neut % (Auto) 77.0 Lymph % (Auto) 14.9 Forest % (Auto) 7.5 Eos % (Auto) 0.0 Baso % (Auto) 0.1 Neut # (Auto) 12.88 H Lymph # (Auto) 2.50 Forest # (Auto) 1.26 H Eos # (Auto) 0.00 Baso # (Auto) 0.02 Immature Gran # (Auto) 0.09 H Absolute Nucleated RBC Nucleated RBC % (auto) Neutrophils % (Manual) Band Neutrophils % Lymphocytes % (Manual) Prolymphocyte % Reactive Lymphs % (Man) Monocytes % (Manual) Eosinophils % (Manual) Basophils % (Manual) Metamyelocytes % (Man) Myelocytes % (Man) Promyelocytes % (Man) Blast Cells % (Manual) Plasma Cell % (Manual) Other Cells % Nucleated RBC % Neutrophils # (Manual) Band Neutrophils # Total Absolute Neuts Lymphocytes # (Manual) Prolymphocyte # Reactive Lymphs # Total Abs Lymphocytes Monocytes # (Manual) Eosinophils # (Manual) Basophils # (Manual) Metamyelocytes # (Man) Myelocytes # (Manual) Promyelocytes # (Man) Blast Cells # (Man) Plasma Cell # (Manual) Other Cells # Nucleated RBCs # (Man) Hypersegmented Neuts Hyposegmented Neuts Hypogranular Neuts Large Granular Lymphs # Lrg Granular Lymphs Hairy Cells Smudge Cells Toxic Granulation Toxic Vacuolation Dohle Bodies Christiano Rods Platelet Estimate Hypogranular Platelets Clumped Platelets Giant Platelets Platelet Satelliting RBC Morphology Polychromasia Hypochromasia Poikilocytosis Basophilic Stippling Anisocytosis Microcytosis Macrocytosis Spherocytes Pappenheimer Bodies Sickle Cells Target Cells Tear Drop Cells Ovalocytes Stomatocytes Renae-Covenant Life Bodies Echinocytes Acanthocytes (Spur) Rouleaux RBC Agglutinates Schistocytes Sezary Cell PT (9.0-12.0) Seconds INR (0.9-1.1) APTT 117.1 H* (21.0-31.0) Seconds PTT Ratio 4.3 Sodium (136-145) mmol/L Potassium (3.5-5.1) mmol/L Chloride (98-107) mmol/L Carbon Dioxide (21-32) mmol/L Anion Gap (3-11) BUN (6-23) mg/dl Creatinine (0.6-1.4) mg/dl Est Cr Clr Drug Dosing ml/min Est GFR ( Amer) ml/min Est GFR (Non-Af Amer) ml/min BUN/Creatinine Ratio (10-20) Glucose (70-99(Fasting)) mg/dl Estimat Average Glucose Hemoglobin A1c Calcium (8.5-10.1) mg/dl Total Bilirubin (0.2-1.0) mg/dl AST (13-39) U/L ALT (7-52) U/L Alkaline Phosphatase (34-104) U/L Troponin I High Sens (0-20) pg/ml Total Protein (6.0-8.3) gm/dl Albumin (3.4-5.0) gm/dl Globulin (2.5-4.0) gm/dl Albumin/Globulin Ratio (0.9-2) Triglycerides (0-150) mg/dl Cholesterol (0-200) mg/dl LDL Cholesterol, Calc mg/dl VLDL Cholesterol, Calc (0-30) mg/dl HDL Cholesterol mg/dl Cholesterol/HDL Ratio (0-5) Procalcitonin (0-0.5) ng/ml SARS-CoV-2 (PCR) POSITIVE A* (Negative) Influenza Type A (PCR) Negative (Neg) Influenza Type B (PCR) Negative (Neg) RSV (RT-PCR) Negative (Neg) Blood Parasites ID 06/25/22 06/25/22 06/25/22 Range/Units 14:03 11:15 10:40 WBC 11.15 H RBC 4.49 L Hgb 14.0 Hct 40.5 MCV 90.2 MCH 31.2 MCHC 34.6 RDW Std Deviation 48.1 H RDW Coeff of Taya 14.4 Plt Count 208 MPV 10.3 Immature Gran % (Auto) 0.6 Neut % (Auto) 77.4 Lymph % (Auto) 14.5 Forest % (Auto) 7.4 Eos % (Auto) 0.0 Baso % (Auto) 0.1 Neut # (Auto) 8.62 H Lymph # (Auto) 1.62 Forest # (Auto) 0.83 H Eos # (Auto) 0.00 Baso # (Auto) 0.01 Immature Gran # (Auto) 0.07 H Absolute Nucleated RBC Nucleated RBC % (auto) Neutrophils % (Manual) Band Neutrophils % Lymphocytes % (Manual) Prolymphocyte % Reactive Lymphs % (Man) Monocytes % (Manual) Eosinophils % (Manual) Basophils % (Manual) Metamyelocytes % (Man) Myelocytes % (Man) Promyelocytes % (Man) Blast Cells % (Manual) Plasma Cell % (Manual) Other Cells % Nucleated RBC % Neutrophils # (Manual) Band Neutrophils # Total Absolute Neuts Lymphocytes # (Manual) Prolymphocyte # Reactive Lymphs # Total Abs Lymphocytes Monocytes # (Manual) Eosinophils # (Manual) Basophils # (Manual) Metamyelocytes # (Man) Myelocytes # (Manual) Promyelocytes # (Man) Blast Cells # (Man) Plasma Cell # (Manual) Other Cells # Nucleated RBCs # (Man) Hypersegmented Neuts Hyposegmented Neuts Hypogranular Neuts Large Granular Lymphs # Lrg Granular Lymphs Hairy Cells Smudge Cells Toxic Granulation Toxic Vacuolation Dohle Bodies Christiano Rods Platelet Estimate Hypogranular Platelets Clumped Platelets Giant Platelets Platelet Satelliting RBC Morphology Polychromasia Hypochromasia Poikilocytosis Basophilic Stippling Anisocytosis Microcytosis Macrocytosis Spherocytes Pappenheimer Bodies Sickle Cells Target Cells Tear Drop Cells Ovalocytes Stomatocytes Renae-Covenant Life Bodies Echinocytes Acanthocytes (Spur) Rouleaux RBC Agglutinates Schistocytes Sezary Cell PT (9.0-12.0) Seconds INR (0.9-1.1) APTT (21.0-31.0) Seconds PTT Ratio Sodium (136-145) mmol/L Potassium (3.5-5.1) mmol/L Chloride (98-107) mmol/L Carbon Dioxide (21-32) mmol/L Anion Gap (3-11) BUN (6-23) mg/dl Creatinine (0.6-1.4) mg/dl Est Cr Clr Drug Dosing ml/min Est GFR ( Amer) ml/min Est GFR (Non-Af Amer) ml/min BUN/Creatinine Ratio (10-20) Glucose (70-99(Fasting)) mg/dl Estimat Average Glucose Hemoglobin A1c Calcium (8.5-10.1) mg/dl Total Bilirubin (0.2-1.0) mg/dl AST (13-39) U/L ALT (7-52) U/L Alkaline Phosphatase (34-104) U/L Troponin I High Sens 1081.7 H* (0-20) pg/ml Total Protein (6.0-8.3) gm/dl Albumin (3.4-5.0) gm/dl Globulin (2.5-4.0) gm/dl Albumin/Globulin Ratio (0.9-2) Triglycerides (0-150) mg/dl Cholesterol (0-200) mg/dl LDL Cholesterol, Calc mg/dl VLDL Cholesterol, Calc (0-30) mg/dl HDL Cholesterol mg/dl Cholesterol/HDL Ratio (0-5) Procalcitonin < 0.05 (0-0.5) ng/ml SARS-CoV-2 (PCR) (Negative) Influenza Type A (PCR) (Neg) Influenza Type B (PCR) (Neg) RSV (RT-PCR) (Neg) Blood Parasites ID 06/25/22 06/25/22 06/25/22 Range/Units 10:40 10:40 10:40 WBC Cancelled RBC Cancelled Hgb Cancelled Hct Cancelled MCV Cancelled MCH Cancelled MCHC Cancelled RDW Std Deviation Cancelled RDW Coeff of Taya Cancelled Plt Count Cancelled MPV Cancelled Immature Gran % (Auto) Cancelled Neut % (Auto) Cancelled Lymph % (Auto) Cancelled Forest % (Auto) Cancelled Eos % (Auto) Cancelled Baso % (Auto) Cancelled Neut # (Auto) Cancelled Lymph # (Auto) Cancelled Forest # (Auto) Cancelled Eos # (Auto) Cancelled Baso # (Auto) Cancelled Immature Gran # (Auto) Cancelled Absolute Nucleated RBC Cancelled Nucleated RBC % (auto) Cancelled Neutrophils % (Manual) Cancelled Band Neutrophils % Cancelled Lymphocytes % (Manual) Cancelled Prolymphocyte % Cancelled Reactive Lymphs % (Man) Cancelled Monocytes % (Manual) Cancelled Eosinophils % (Manual) Cancelled Basophils % (Manual) Cancelled Metamyelocytes % (Man) Cancelled Myelocytes % (Man) Cancelled Promyelocytes % (Man) Cancelled Blast Cells % (Manual) Cancelled Plasma Cell % (Manual) Cancelled Other Cells % Cancelled Nucleated RBC % Cancelled Neutrophils # (Manual) Cancelled Band Neutrophils # Cancelled Total Absolute Neuts Cancelled Lymphocytes # (Manual) Cancelled Prolymphocyte # Cancelled Reactive Lymphs # Cancelled Total Abs Lymphocytes Cancelled Monocytes # (Manual) Cancelled Eosinophils # (Manual) Cancelled Basophils # (Manual) Cancelled Metamyelocytes # (Man) Cancelled Myelocytes # (Manual) Cancelled Promyelocytes # (Man) Cancelled Blast Cells # (Man) Cancelled Plasma Cell # (Manual) Cancelled Other Cells # Cancelled Nucleated RBCs # (Man) Cancelled Hypersegmented Neuts Cancelled Hyposegmented Neuts Cancelled Hypogranular Neuts Cancelled Large Granular Lymphs Cancelled # Lrg Granular Lymphs Cancelled Hairy Cells Cancelled Smudge Cells Cancelled Toxic Granulation Cancelled Toxic Vacuolation Cancelled Dohle Bodies Cancelled Christiano Rods Cancelled Platelet Estimate Cancelled Hypogranular Platelets Cancelled Clumped Platelets Cancelled Giant Platelets Cancelled Platelet Satelliting Cancelled RBC Morphology Cancelled Polychromasia Cancelled Hypochromasia Cancelled Poikilocytosis Cancelled Basophilic Stippling Cancelled Anisocytosis Cancelled Microcytosis Cancelled Macrocytosis Cancelled Spherocytes Cancelled Pappenheimer Bodies Cancelled Sickle Cells Cancelled Target Cells Cancelled Tear Drop Cells Cancelled Ovalocytes Cancelled Stomatocytes Cancelled Renae-Covenant Life Bodies Cancelled Echinocytes Cancelled Acanthocytes (Spur) Cancelled Rouleaux Cancelled RBC Agglutinates Cancelled Schistocytes Cancelled Sezary Cell Cancelled PT 10.6 (9.0-12.0) Seconds INR 1.0 (0.9-1.1) APTT 25.4 (21.0-31.0) Seconds PTT Ratio 0.9 Sodium 137 (136-145) mmol/L Potassium 4.0 (3.5-5.1) mmol/L Chloride 102 (98-107) mmol/L Carbon Dioxide 26 (21-32) mmol/L Anion Gap 9 (3-11) BUN 17 (6-23) mg/dl Creatinine 0.95 (0.6-1.4) mg/dl Est Cr Clr Drug Dosing 70.1 ml/min Est GFR ( Amer) 89.1 ml/min Est GFR (Non-Af Amer) 76.9 ml/min BUN/Creatinine Ratio 17.9 (10-20) Glucose 104 H (70-99(Fasting)) mg/dl Estimat Average Glucose Hemoglobin A1c Calcium 9.9 (8.5-10.1) mg/dl Total Bilirubin 0.5 (0.2-1.0) mg/dl AST 46 H (13-39) U/L ALT 32 (7-52) U/L Alkaline Phosphatase 90 (34-104) U/L Troponin I High Sens 1205.7 H* (0-20) pg/ml Total Protein 7.9 (6.0-8.3) gm/dl Albumin 4.1 (3.4-5.0) gm/dl Globulin 3.8 (2.5-4.0) gm/dl Albumin/Globulin Ratio 1.1 (0.9-2) Triglycerides (0-150) mg/dl Cholesterol (0-200) mg/dl LDL Cholesterol, Calc mg/dl VLDL Cholesterol, Calc (0-30) mg/dl HDL Cholesterol mg/dl Cholesterol/HDL Ratio (0-5) Procalcitonin (0-0.5) ng/ml SARS-CoV-2 (PCR) (Negative) Influenza Type A (PCR) (Neg) Influenza Type B (PCR) (Neg) RSV (RT-PCR) (Neg) Blood Parasites ID Cancelled Medications Administered Current Inpatient Medications Acetaminophen (Acetaminophen 325 Mg Tab) 650 mg PO Q4H PRN PRN Reason: Pain or Fever Stop: 07/25/22 17:40 Albuterol (Albuterol Hfa 8 Gm Inhaler) 2 puffs INH Q4H PRN PRN Reason: Shortness Of Breath Or Wheezing Stop: 07/25/22 17:40 Allopurinol (Allopurinol 300 Mg Tab) 300 mg PO DAILY [facility] Stop: 07/26/22 08:59 Last Admin: 06/26/22 08:26 Dose: 300 mg Aspirin (Aspirin 81 Mg Ectab) 81 mg PO DAILY [facility] Stop: 07/26/22 08:59 Last Admin: 06/26/22 08:26 Dose: 81 mg Atorvastatin Calcium (Atorvastatin 40 Mg Tab) 80 mg PO DAILY [facility] Stop: 07/26/22 08:59 Last Admin: 06/26/22 08:26 Dose: 80 mg Doxycycline Hyclate (Doxycycline Hyclate 100 Mg Cap) 100 mg PO BID [facility]; Protocol Stop: 07/02/22 20:59 Last Admin: 06/26/22 08:26 Dose: 100 mg Ezetimibe (Ezetimibe 10 Mg Tablet) 10 mg PO DAILY [facility] Stop: 07/26/22 08:59 Last Admin: 06/26/22 08:26 Dose: 10 mg Heparin Sodium/Dextrose (Heparin Sodium/Dextrose) 25,000 units in 500 mls @ 0 mls/hr IV .Q0M [facility]; Protocol Stop: 07/25/22 16:44 Last Titration: 06/26/22 09:18 Dose: 0 units/hr, 0 mls/hr Ceftriaxone Sodium 2,000 mg/ (Dextrose) 70 mls @ 100 mls/hr IV Q24H [facility]; Protocol Stop: 07/03/22 08:59 Last Infusion: 06/26/22 09:59 Dose: Infused Dexamethasone 6 mg/ Syringe 1.5 mls @ 1 mls/min IV DAILY [facility] Stop: 07/06/22 08:59 Last Admin: 06/26/22 09:10 Dose: 1 mls/min Metoprolol Succinate (Metoprolol Succ 50mg Ext Rel Tab) 100 mg PO DAILY [facility] Stop: 07/26/22 08:59 Last Admin: 06/26/22 08:26 Dose: 100 mg Nitroglycerin (Nitroglycerin Sl 0.4 Mg/Tab Tab) 0.4 mg SL UD PRN PRN Reason: Chest Pain Stop: 07/25/22 17:40 Polyethylene Glycol (Polyethylene (Miralax) 17 Gm Pack) 17 gm PO DAILY PRN PRN Reason: Constipation Stop: 07/25/22 17:40
[2022-06-26 10:31] LABS: Estimated Average Glucose 134 mg/dl; Hemoglobin A1C 6.3 % (4.5-5.6)
--- NOTE | 2022-06-26 14:14 | Cardiology Progress Note ---
Date of Service June 26, 2022 Assessment & Plan (1) COVID-19: (2) Elevated troponin I level: (3) CAD (coronary artery disease), [place] coronary artery: Plan 76-year-old patient referred to the ER due to elevated troponin. Diagnosed with acute COVID-19 infection. Troponin elevated however trending downward. He is without anginal symptoms. ECG with inferior T wave abnormality. Demand ischemia in the setting of acute COVID-19 infectious process, direct inflammatory process, or ACS considered. Recommend 48 hours of IV heparin. Continue other cardiac medications including high intensity statin therapy, metoprolol succinate, and low-dose aspirin. No wall motion abnormalities on echocardiogram. EKG not performed today Continue 48 hours of IV heparin in total and likely DC to home, heparin drip initiated on 06/25/2022 at 1645 May also consider 30 days of Plavix in addition to aspirin therapy but will hold for now Admission and Anticipated Discharge Date Admission Date: June 25, 2022 Subjective Telemetry reviewed. Chart reviewed. Results & Data ([facility]) Vital Signs (Past 12 Hours) Vital Signs Temp Pulse Pulse Resp BP BP Pulse Ox 06/26/22 12:02 36.7 C 62 18 127/84 92 06/26/22 09:00 55 L 06/26/22 09:00 06/26/22 08:24 36.8 C 67 18 151/89 H 93 06/26/22 04:35 36.5 C 62 16 144/82 H 92 O2 Del Method 06/26/22 12:02 Room Air 06/26/22 09:00 06/26/22 09:00 Room Air 06/26/22 08:24 Room Air 06/26/22 04:35 Room Air
[2022-06-26 19:02] LABS: Partial Thromboplastin Ratio 2.6
[2022-06-26 19:12] LABS: Partial Thromboplastin Time 72.1 Seconds (21.0-31.0)
[2022-06-26] MEDS: ALBUTEROL HFA 8 GM INHALER INH PRN (19:49)
[2022-06-26] MEDS: HEPARIN SODIUM/DEXTROSE 25,000 UNITS/500 ML BAG IV SCH (19:51)
[2022-06-26] MEDS ORDERED: SODIUM CHLORIDE 0.65% NA SOLN 45 ML (OCEAN) PRN (20:01)
[2022-06-27 01:55] LABS: Hematocrit (blood only) 39.4 % (40.1-51.0); Hemoglobin 13.9 g/dl (14.0-18.0); Mean Corpuscular Hemoglobin 32.2 pg (25.0-34.0); Mean Corpuscular Hgb Conc 35.3 g/dL (32.0-36.0); Mean Corpuscular Volume 91.2 fL (80.0-100.0); Mean Platelet Volume 10.4 fL (9.4-12.4); Platelet Count 226 K/uL (130-400); RDW Coefficient of Variation 14.7 % (11.5-14.5); RDW Standard Deviation 48.9 fL (36.4-46.3); Red Blood Count 4.32 M/uL (4.63-6.08); White Blood Count 17.65 K/ul (4.8-10.8)
[2022-06-27 02:23] LABS: Partial Thromboplastin Ratio 2.6
[2022-06-27 02:25] LABS: BUN Creatinine Ratio 27.2 (10-20); Calcium 8.9 mg/dl (8.5-10.1); Creatinine Clr Calc Pharmacy 72.2 ml/min; Est GFR (African American) 92.7 ml/min; Est GFR (Non-African American) 79.9 ml/min; Magnesium 2.1 mg/dl (1.7-2.4); Potassium 4.5 mmol/L (3.5-5.1)
[2022-06-27 03:18] LABS: Partial Thromboplastin Time 70.6 Seconds (21.0-31.0)
[2022-06-27] MEDS: ALBUTEROL HFA 8 GM INHALER INH PRN (05:51)
--- NOTE | 2022-06-27 07:50 | Hospitalist Progress Note ---
Date of Service June 27, 2022 Assessment & Plan (1) Elevated troponin I level: Plan: Patient is 76 y/o M with PM[place] 4 [place] [facility] [place] & aortic insufficiency, carotid artery stenosis, HTN, dyslipidemia, pre-diabetes, asthma, BPH, neuropathy, gout, obesity presented to ER secondary to abnormal labs - elevated outpatient Troponin T level of 405 from 06/24/22. 5-day history of URI symptoms. Denies chest pain In ER vital stable. Initial high-sensitivity troponin 1205. EKG sinus rhythm, rate 66, T wave inversion inferior leads, T wave abnormality anterior leads per my review. DDx: Demand ischemia, ACS, myocarditis troponin is downtrending Echo obtained LV chamber size with moderate concentric LVH. Normal LV systolic function, EF 55 to 60%. No segmental LV wall motion abnormalities are noted. Grade 2 diastolic dysfunction. Aortic valve sclerosis moderate, without significant aortic valvular stenosis. Mild aortic regurg. There is moderate mitral annular calcification. Mitral valve leaflets appear thickened, but open well. There is moderate mitral regurg. Mild biatrial enlargement. Moderate tricuspid regurg. PA systolic pressure of 38 mmHg. Continue aspirin, atorvastatin, and metoprolol succinate Cardiology consult. Recommends IV heparin for 48 hours (2) COVID-19: Plan: 5 days of chills, body aches, headache, nasal congestion, sore throat, brown productive cough, generalized weakness. History to COVID-19 vaccinations, no boosters Seen urgent care clinic and diagnosed with suspected COVID-19, pneumonia and was started on Z-Bladimir, prednisone, albuterol In ER positive COVID-19 PCR. Negative RSV and influenza PCR Not hypoxic CXR: No acute infiltrate DDx: Pneumonia Isolation precautions Blood cultures negat. in 24 hrs Procalcitonin negative Started Rocephin, doxycycline - continue Dexamethasone daily incentive spirometer, flutter valve Supplemental oxygen as needed. Patient not currently hypoxic (3) CAD (coronary artery disease), [place] coronary artery: Plan: S/p CABG Continue aspirin, atorvastatin, metoprolol succinate Work-up as above (4) HTN (hypertension): Plan: Stable Continue metoprolol succinate (5) Dyslipidemia: Plan: Continue atorvastatin, ezetimibe (6) Intermittent asthma: Plan: Albuterol as needed (7) Gout: Plan: Continue allopurinol DVT Prophylaxis On IV Heparin Full Code as per discussion with pt Follows with Dr Torres for routine care Admission and Anticipated Discharge Date Admission Date: June 25, 2022 Subjective Patient seen in follow-up of COVID-19 pneumonia, elevated troponin Started on IV heparin on admission, will cont for 48 hrs (till 5pm) Currently sitting up in bed, in no acute distress Reports feeling better Denies chest pain Denies shortness of breath, he does have some cough + sputum Review of Systems Review of Systems: All systems reviewed & are unremarkable except as noted in Subjective Physical Exam Physical Exam: General: no distre ss, overweight Hea d: normocephalic, atraumatic Eyes: c onjunctiva non-inj ected, anicteric E NT: normal inspect ion external ears, nose, mucous memb ranes moist Neck: supple, trachea mi dline Lungs: clear , no respiratory d istress, no wheezi ng/rhonchi/rales C V: RRR, no murmur, no JVD, no pretib ial edema Abd: nor mal BS, soft, non- tender Ext: no cya nosis, no calf ten derness Neuro: A&O x 3, no focal def icits noted, karen l affect Skin: war m, dry Results & Data Results & Data ([facility]) Vital Signs (Past 12 Hours) Vital Signs Temp Pulse Pulse Resp BP Pulse Ox O2 Del Method 06/27/22 05:52 63 95 Room Air 06/27/22 03:35 68 06/27/22 03:08 36.5 C 65 18 134/69 94 Room Air 06/26/22 23:52 36.7 C 63 18 146/88 H 96 Room Air 06/26/22 21:00 Room Air 06/26/22 19:51 59 L 18 91 Room Air Laboratory Results 06/27/22 06/27/22 06/27/22 Range/Units 01:40 01:40 01:40 WBC 17.65 H (4.8-10.8) K/ul RBC 4.32 L (4.63-6.08) M/uL Hgb 13.9 L (14.0-18.0) g/dl Hct 39.4 L (40.1-51.0) % MCV 91.2 (80.0-100.0) fL MCH 32.2 (25.0-34.0) pg MCHC 35.3 (32.0-36.0) g/dL RDW Std Deviation 48.9 H (36.4-46.3) fL RDW Coeff of Taya 14.7 H (11.5-14.5) % Plt Count 226 (130-400) K/uL MPV 10.4 (9.4-12.4) fL Immature Gran % (Auto) % Neut % (Auto) % Lymph % (Auto) % [place] % (Auto) % Eos % (Auto) % Baso % (Auto) % Neut # (Auto) (1.4-6.5) K/uL Lymph # (Auto) (1.2-3.4) K/uL [place] # (Auto) (0.24-0.82) K/uL Eos # (Auto) (0-0.50) K/uL Baso # (Auto) (0-0.2) K/uL Immature Gran # (Auto) (0.00-0.02) K/uL APTT 70.6 H* (21.0-31.0) Seconds PTT Ratio 2.6 Sodium 138 (136-145) mmol/L Potassium 4.5 (3.5-5.1) mmol/L Chloride 104 (98-107) mmol/L Carbon Dioxide 28 (21-32) mmol/L Anion Gap 6 (3-11) BUN 25 H (6-23) mg/dl Creatinine 0.92 (0.6-1.4) mg/dl Est Cr Clr Drug Dosing 72.2 ml/min Est GFR ( Amer) 92.7 ml/min Est GFR (Non-Af Amer) 79.9 ml/min BUN/Creatinine Ratio 27.2 H (10-20) Glucose 132 H (70-99(Fasting)) mg/dl Estimat Average Glucose mg/dl Hemoglobin A1c (4.5-5.6) % Calcium 8.9 (8.5-10.1) mg/dl Magnesium 2.1 (1.7-2.4) mg/dl Total Bilirubin (0.2-1.0) mg/dl AST (13-39) U/L ALT (7-52) U/L Alkaline Phosphatase (34-104) U/L Total Protein (6.0-8.3) gm/dl Albumin (3.4-5.0) gm/dl Globulin (2.5-4.0) gm/dl Albumin/Globulin Ratio (0.9-2) Triglycerides (0-150) mg/dl Cholesterol (0-200) mg/dl LDL Cholesterol, Calc mg/dl VLDL Cholesterol, Calc (0-30) mg/dl HDL Cholesterol mg/dl Cholesterol/HDL Ratio (0-5) 06/26/22 06/26/22 06/26/22 Range/Units 18:02 08:07 08:07 WBC (4.8-10.8) K/ul RBC (4.63-6.08) M/uL Hgb (14.0-18.0) g/dl Hct (40.1-51.0) % MCV (80.0-100.0) fL MCH (25.0-34.0) pg MCHC (32.0-36.0) g/dL RDW Std Deviation (36.4-46.3) fL RDW Coeff of [place]aya (11.5-14.5) % Plt Count (130-400) K/uL MPV (9.4-12.4) fL Immature Gran % (Auto) % Neut % (Auto) % Lymph % (Auto) % [place] % (Auto) % Eos % (Auto) % Baso % (Auto) % Neut # (Auto) (1.4-6.5) K/uL Lymph # (Auto) (1.2-3.4) K/uL [place] # (Auto) (0.24-0.82) K/uL Eos # (Auto) (0-0.50) K/uL Baso # (Auto) (0-0.2) K/uL Immature Gran # (Auto) (0.00-0.02) K/uL APTT 72.1 H* 136.9 H* (21.0-31.0) Seconds PTT Ratio 2.6 5.0 Sodium (136-145) mmol/L Potassium (3.5-5.1) mmol/L Chloride (98-107) mmol/L Carbon Dioxide (21-32) mmol/L Anion Gap (3-11) BUN (6-23) mg/dl Creatinine (0.6-1.4) mg/dl Est Cr Clr Drug Dosing ml/min Est GFR ( Amer) ml/min Est GFR (Non-Af Amer) ml/min BUN/Creatinine Ratio (10-20) Glucose (70-99(Fasting)) mg/dl Estimat Average Glucose 134 mg/dl Hemoglobin A1c 6.3 H (4.5-5.6) % Calcium (8.5-10.1) mg/dl Magnesium (1.7-2.4) mg/dl Total Bilirubin (0.2-1.0) mg/dl AST (13-39) U/L ALT (7-52) U/L Alkaline Phosphatase (34-104) U/L Total Protein (6.0-8.3) gm/dl Albumin (3.4-5.0) gm/dl Globulin (2.5-4.0) gm/dl Albumin/Globulin Ratio (0.9-2) Triglycerides (0-150) mg/dl Cholesterol (0-200) mg/dl LDL Cholesterol, Calc mg/dl VLDL Cholesterol, Calc (0-30) mg/dl HDL Cholesterol mg/dl Cholesterol/HDL Ratio (0-5) 06/26/22 06/26/22 Range/Units 08:07 08:07 WBC 16.75 H (4.8-10.8) K/ul RBC 4.70 (4.63-6.08) M/uL Hgb 14.5 (14.0-18.0) g/dl Hct 42.5 (40.1-51.0) % MCV 90.4 (80.0-100.0) fL MCH 30.9 (25.0-34.0) pg MCHC 34.1 (32.0-36.0) g/dL RDW Std Deviation 48.8 H (36.4-46.3) fL RDW Coeff of Taya 14.6 H (11.5-14.5) % Plt Count 220 (130-400) K/uL MPV 10.6 (9.4-12.4) fL Immature Gran % (Auto) 0.5 % Neut % (Auto) 77.0 % Lymph % (Auto) 14.9 % [place] % (Auto) 7.5 % Eos % (Auto) 0.0 % Baso % (Auto) 0.1 % Neut # (Auto) 12.88 H (1.4-6.5) K/uL Lymph # (Auto) 2.50 (1.2-3.4) K/uL [place] # (Auto) 1.26 H (0.24-0.82) K/uL Eos # (Auto) 0.00 (0-0.50) K/uL Baso # (Auto) 0.02 (0-0.2) K/uL Immature Gran # (Auto) 0.09 H (0.00-0.02) K/uL APTT (21.0-31.0) Seconds PTT Ratio Sodium 140 (136-145) mmol/L Potassium 4.4 (3.5-5.1) mmol/L Chloride 104 (98-107) mmol/L Carbon Dioxide 26 (21-32) mmol/L Anion Gap 10 (3-11) BUN 22 (6-23) mg/dl Creatinine 0.94 (0.6-1.4) mg/dl Est Cr Clr Drug Dosing 70.7 ml/min Est GFR ( Amer) 90.3 ml/min Est GFR (Non-Af Amer) 77.9 ml/min BUN/Creatinine Ratio 23.4 H (10-20) Glucose 128 H (70-99(Fasting)) mg/dl Estimat Average Glucose mg/dl Hemoglobin A1c (4.5-5.6) % Calcium 9.7 (8.5-10.1) mg/dl Magnesium (1.7-2.4) mg/dl Total Bilirubin 0.4 (0.2-1.0) mg/dl AST 34 (13-39) U/L ALT 29 (7-52) U/L Alkaline Phosphatase 81 (34-104) U/L Total Protein 7.4 (6.0-8.3) gm/dl Albumin 3.8 (3.4-5.0) gm/dl Globulin 3.6 (2.5-4.0) gm/dl Albumin/Globulin Ratio 1.1 (0.9-2) Triglycerides 88 (0-150) mg/dl Cholesterol 137 (0-200) mg/dl LDL Cholesterol, Calc 81 mg/dl VLDL Cholesterol, Calc 18 (0-30) mg/dl HDL Cholesterol 38 mg/dl Cholesterol/HDL Ratio 3.6 (0-5) Medications Administered Current Inpatient Medications Acetaminophen (Acetaminophen 325 Mg Tab) 650 mg PO Q4H PRN PRN Reason: Pain or Fever Stop: 07/25/22 17:40 Albuterol (Albuterol Hfa 8 Gm Inhaler) 2 puffs INH Q4H PRN PRN Reason: Shortness Of Breath Or Wheezing Stop: 07/25/22 17:40 Last Admin: 06/27/22 05:51 Dose: 2 puffs Allopurinol (Allopurinol 300 Mg Tab) 300 mg PO DAILY [facility] Stop: 07/26/22 08:59 Last Admin: 06/26/22 08:26 Dose: 300 mg Aspirin (Aspirin 81 Mg Ectab) 81 mg PO DAILY [facility] Stop: 07/26/22 08:59 Last Admin: 06/26/22 08:26 Dose: 81 mg Atorvastatin Calcium (Atorvastatin 40 Mg Tab) 80 mg PO DAILY [facility] Stop: 07/26/22 08:59 Last Admin: 06/26/22 08:26 Dose: 80 mg Doxycycline Hyclate (Doxycycline Hyclate 100 Mg Cap) 100 mg PO BID [facility]; Protocol Stop: 07/02/22 20:59 Last Admin: 06/26/22 20:26 Dose: 100 mg Ezetimibe (Ezetimibe 10 Mg Tablet) 10 mg PO DAILY [facility] Stop: 07/26/22 08:59 Last Admin: 06/26/22 08:26 Dose: 10 mg Heparin Sodium/Dextrose (Heparin Sodium/Dextrose) 25,000 units in 500 mls @ 12 mls/hr IV .Q24H [facility]; Protocol Stop: 07/25/22 16:44 Last Titration: 06/27/22 03:19 Dose: 600 units/hr, 12 mls/hr Ceftriaxone Sodium 2,000 mg/ (Dextrose) 70 mls @ 100 mls/hr IV Q24H [facility]; Protocol Stop: 07/03/22 08:59 Last Infusion: 06/26/22 09:59 Dose: Infused Dexamethasone 6 mg/ Syringe 1.5 mls @ 1 mls/min IV DAILY [facility] Stop: 07/06/22 08:59 Last Admin: 06/26/22 09:10 Dose: 1 mls/min Metoprolol Succinate (Metoprolol Succ 50mg Ext Rel Tab) 100 mg PO DAILY [facility] Stop: 07/26/22 08:59 Last Admin: 06/26/22 08:26 Dose: 100 mg Nitroglycerin (Nitroglycerin Sl 0.4 Mg/Tab Tab) 0.4 mg SL UD PRN PRN Reason: Chest Pain Stop: 07/25/22 17:40 Polyethylene Glycol (Polyethylene (Miralax) 17 Gm Pack) 17 gm PO DAILY PRN PRN Reason: Constipation Stop: 07/25/22 17:40 Sodium Chloride (Sodium Chloride 0.65% Na Soln 45 Ml ([place])) 2 sprays NA BID PRN PRN Reason: Nasal Congestion Stop: 07/26/22 20:00
[2022-06-27] MEDS: DOXYCYCLINE HYCLATE 100 MG CAP PO SCH (09:10)
[2022-06-27] MEDS: ASPIRIN 81 MG ECTAB PO SCH (09:10)
[2022-06-27] MEDS: allopurinoL 300 MG TAB PO SCH (09:10)
[2022-06-27] MEDS: dexAMETHasone 6 MG in SYRINGE 0 ML IV SCH (09:10)
[2022-06-27] MEDS: ATORVASTATIN 40 MG TAB PO SCH (09:10)
[2022-06-27] MEDS: cefTRIAXone SODIUM 2,000 MG in DEXTROSE 5% 50 ML IV SCH (09:11)
[2022-06-27] MEDS: METOPROLOL SUCC 50MG EXT REL TAB PO SCH (09:11)
[2022-06-27] MEDS: EZETIMIBE 10 MG TABLET PO SCH (09:11)
[2022-06-27 11:01] LABS: Partial Thromboplastin Ratio 1.8
[2022-06-27 11:07] LABS: Partial Thromboplastin Time 49.3 Seconds (21.0-31.0)
--- NOTE | 2022-06-27 14:15 | Discharge Summary ---
Date of Service June 27, 2022 Admission HPI Per Admitting Provider Patient is 76 y/o M with PMH CAD s/p CABG x 4 in 2016 at [facility] [place], mitral & aortic insufficiency, carotid artery stenosis, HTN, dyslipidemia, pre-diabetes, asthma, BPH, neuropathy, gout, obesity presented to ER secondary to abnormal labs. Patient states on 06/20/2022 had onset of chills, body aches, headache, nasal congestion, sore throat, cough, generalized weakness. Reports cough productive of brown-colored sputum. Also reports "burning sensation to lungs" for the past 5 days. Denies any noted overt shortness of breath but feels like he has intermittent shallow breathing. Denies other chest pain. States has had 3 days of loose stools which has since resolved. Denies nausea, vomiting, abdominal pain. Denies palpitations, diaphoresis. He was seen at urgent care yesterday and had troponin level drawn. Troponin T result was 405. He was called today and told to go to ER for elevated troponin. He also had COVID-19 swab yesterday, however results are not available at this time for review. He was diagnosed with suspected COVID-19 and possible pneumonia and was started on Z-pack, prednisone 40mg po daily, and albuterol inhaler. Patient states initial illness onset he used Tylenol for one day and then switched to taking aspirin twice daily for fever and myalgias with some relief. Denies any known ill contacts, however was sitting in ER waiting room with his as a patient on 06/19/22 and is concern ed may have caught something there. Reports 2 COVID-19 vaccines, no boosters. [facility] had influenza vaccine this season. 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 Denies N/V, melena, hematochezia, syncope, vision changes, neck pain, orthopnea, palpitations, choking, otalgia, abdominal pain, paresthesias, extremity edema, rashes, dysuria, hematuria. Admission Exam Per Admitting Provider General: no distress, overweight Head: normocephalic, atraumatic Eyes: conjunctiva non-injected, anicteric ENT: normal inspection external ears, nose, mucous membranes moist Neck: supple, trachea midline Lungs: clear, no respiratory distress, no wheezing/rhonchi/rales CV: RRR, no murmur, no JVD, no pretibial edema Abd: normal BS, soft, non-tender Ext: no cyanosis, no calf tenderness Neuro: A&O x 3, no focal deficits noted, normal affect Skin: warm, dry Principal Diagnosis Elevated troponin COVID-19 infection Discharge Exam General: no distress, overweight Head: normocephalic, atraumatic Eyes: conjunctiva non-injected, anicteric ENT: normal inspection external ears, nose, mucous membranes moist Neck: supple, trachea midline Lungs: clear, no respiratory distress, no wheezing/rhonchi/rales CV: RRR, no murmur, no JVD, no pretibial edema Abd: normal BS, soft, non-tender Ext: no cyanosis, no calf tenderness Neuro: A&O x 3, no focal deficits noted, normal affect Skin: warm, dry Discharge Data Allergies Allergy/AdvReac Type Severity Reaction Status Date / Time lisinopril Allergy angioedmea Verified 06/25/22 12:51 rosuvastatin [From Crestor] AdvReac myalgias Verified 06/25/22 12:51 Acarides (Mites) Allergy Intermediate CONGESTION, Uncoded 10/22/15 13:48 ITCHY EYES, SNEEZING. Consultations 06/25/22 13:07 ED Decision to Admit Stat 06/25/22 16:19 Consult Cardiology Routine Hospital Course (1) Elevated troponin I level: Patient is 76 y/o M with PMH CAD s/p CABG x 4 in 2016 at [facility] [place], mitral & aortic insufficiency, carotid artery stenosis, HTN, dyslipidemia, pre-diabetes, asthma, BPH, neuropathy, gout, obesity presented to ER secondary to abnormal labs - elevated outpatient Troponin T level of 405 from 06/24/22. 5-day history of URI symptoms. Denies chest pain In ER vital stable. Initial high-sensitivity troponin 1205. EKG sinus rhythm, rate 66, T wave inversion inferior leads, T wave abnormality anterior leads per my review. DDx: Demand ischemia, ACS, myocarditis troponin is downtrending Echo obtained LV chamber size with moderate concentric LVH. Normal LV systolic function, EF 55 to 60%. No segmental LV wall motion abnormalities are noted. Grade 2 diastolic dysfunction. Aortic valve sclerosis moderate, without significant aortic valvular stenosis. Mild aortic regurg. There is moderate mitral annular calcification. Mitral valve leaflets appear thickened, but open well. There is moderate mitral regurg. Mild biatrial enlargement. Moderate tricuspid regurg. PA systolic pressure of 38 mmHg. Continue aspirin, atorvastatin, and metoprolol succinate Cardiology consult. Recommends IV heparin for 48 hours- will finish Can discharge back on his metoprolol and aspirin (2) COVID-19: 5 days of chills, body aches, headache, nasal congestion, sore throat, brown productive cough, generalized weakness. History to COVID-19 vaccinations, no boosters Seen urgent care clinic and diagnosed with suspected COVID-19, pneumonia and was started on Z-Bladimir, prednisone, albuterol In ER positive COVID-19 PCR. Negative RSV and influenza PCR Not hypoxic CXR: No acute infiltrate DDx: Pneumonia Isolation precautions Blood cultures negat. in 24 hrs Procalcitonin negative Started Rocephin, doxycycline - continue Dexamethasone daily incentive spirometer, flutter valve Supplemental oxygen as needed. Patient not currently hypoxic On discharge patient will continue his home prednisone, and will finish antibiotic treatment with doxycycline (3) CAD (coronary artery disease), [place] coronary artery: S/p CABG Continue aspirin, atorvastatin, metoprolol succinate Work-up as above (4) HTN (hypertension): Stable Continue metoprolol succinate (5) Dyslipidemia: Continue atorvastatin, ezetimibe (6) Intermittent asthma: Albuterol as needed (7) Gout: Continue allopurinol Total Time Total Time Spent Total Time Spent (In Minutes): 40 Discharge Plan Discharge Items Patient Disposition: Home - Self-Care Reason For Visit: ELEVATED TROPONIN Discharge Diagnosis: Elevated troponin COVID-19 infection Activity: Per Instructions section Non-emergency contact: Primary Care Provider Call non-emergency contact if: you have any medication questions and your symptoms worsen Follow-up/Referrals: Jaycob Torres DO [Primary Care Provider] - Diet: Heart Healthy Addtl Attending Provider Instructions: Follow-up with primary care doctor in 1 week. Continue taking prednisone that was prescribed for you already. Finish antibiotic treatment with doxycycline. Continue taking metoprolol and aspirin every day. Pending Studies at Discharge: No Stand-Alone Forms: My [employer], Smoking Cessation Medications and DC Order Prescriptions: New doxycycline hyclate 100 mg Capsule 100 mg PO BID 3 Days Qty: 6 0RF Continued atorvastatin 80 mg tablet 80 mg PO DAILY prednisone 20 mg tablet 40 mg PO DAILY Rx Instructions: 5 day course. Started 1/5/23 metoprolol succinate 100 mg tablet extended release 24 hr 100 mg PO DAILY aspirin 81 mg Tablet,Delayed Release (Dr/Ec) 81 mg PO DAILY nitroglycerin 0.4 mg tablet, sublingual 0.4 mg sublingual UD Rx Instructions: Take 1 tab SL prn CP. may repeat in 5 minutes, up to 3 doses. If CP continues call 911 allopurinol 300 mg tablet 300 mg PO DAILY ezetimibe 10 mg tablet 10 mg PO DAILY albuterol sulfate 90 mcg/actuation HFA aerosol inhaler 2 puff INHALATION Q4H PRN (Reason: Shortness Of Breath Or Wheezing) Discontinued azithromycin 250 mg tablet 250 mg PO DAILY Rx Instructions: On z-pack. Started on 06/25/2022 Discharge Orders: Discharge Order (Routine); Ordered 06/27/22 Ordered By: Shakeel Damian/Other Patient Handouts: Prediabetes, 5 Steps for Eating Healthier Admission Data Admit Date/Time: 06/25/22 13:53 Attending Provider: Shakeel Ellis Admit Provider: Shakeel Ellis Primary Care Provider: Jaycob Torres Other Providers: Shakeel Ellis ; Guero Santiago
--- NOTE | 2022-06-27 14:32 | Cardiology Progress Note ---
Date of Service June 27, 2022 Assessment & Plan (1) COVID-19: (2) Elevated troponin I level: (3) CAD (coronary artery disease), [place] coronary artery: Plan 76-year-old patient referred to the ER due to elevated troponin. Diagnosed with acute COVID-19 infection. Troponin elevated however trending downward. He is without anginal symptoms. ECG with inferior T wave abnormality. Demand ischemia in the setting of acute COVID-19 infectious process, direct inflammatory process, or ACS considered. Recommend 48 hours of IV heparin. Continue other cardiac medications including high intensity statin therapy, metoprolol succinate, and low-dose aspirin. No wall motion abnormalities on echocardiogram. Has completed 48 hours of heparin Okay to DC to home from a cardiac standpoint on previous medical regimen Admission and Anticipated Discharge Date Admission Date: June 25, 2022 Subjective Patient seen and examined. Chart reviewed. Telemetry reviewed. Review of Systems Review of Systems: All systems reviewed & are unremarkable except as noted in HPI & below Physical Exam Physical Exam: General: Awake, alert and oriented x 3. No acute distress. HEENT: Normocephalic, atraumatic. Pupils equal, round and reactive to light and accommodation. Extraocular muscles are intact. Anicteric sclera. Moist mucous membranes. Neck: No JVD. No bruit. Cardiovascular: Regular. Positive S-4. Normal S-1 and S-2. No S-3. 3/6 mid to late systolic ejection murmur, greatest at the right sternal border, second intercostal space with radiation to the bilateral carotids. No rubs. Pulmonary: Clear to auscultation bilaterally. No rales, rhonchi, or wheezing. Abdomen: Bowel sounds x 4, soft. No rebound, guarding or tenderness. No organomegaly. Extremities: No clubbing, cyanosis or edema. +2 pedal pulses bilaterally. Skin: Warm and dry. Results & Data ([facility]) Vital Signs (Past 12 Hours) Vital Signs Temp Pulse Pulse Resp BP Pulse Ox O2 Del Method 06/27/22 12:12 36.6 C 71 18 126/73 93 Room Air 06/27/22 08:27 36.9 C 73 18 165/91 H 92 Room Air 06/27/22 05:52 63 95 Room Air 06/27/22 03:35 68 06/27/22 03:08 36.5 C 65 18 134/69 94 Room Air
--- NOTE | 2022-07-07 05:56 | Coding Query ---
CODING QUERY To promote full compliance with coding requirements relating to patient care, provider participation is requested in all cases of straightener hand uncertainty. Please assist us with the question(s) below: Coding Question(s): Pt admitted with elevated Troponin level and COVID positive . Pt treated with antibiotics for possible pneumonia. CXR -no infiltrates. Pt with prior 5 days of fever,chills and burning lungs. Previous Urgent Care visit patient given z- mray for treatment of suspected Covid Pneumonia. Please document, if known or suspected the Covid respiratory manifestation(s). thank you. Eduardo Weldon, [facility] Physician's Response(s): Principal Diagnosis: "that condition established after study, to be chiefly responsible for occasioning the admission of the patient to the hospital for care." Co-Existing Principal Diagnosis: "when two or more diagnoses equally meet the criteria for principal diagnosis as determined by the circumstances of admission, diagnostic work up, and/or therapy provided, and the Alphabetic Index, Tabular List, or another coding guideline does not provide sequencing direction, any one of the diagnoses may be sequenced first." "When the physician has documented what appears to be a current diagnosis in the body of the record, but has not included the diagnosis in the final diagnostic statement, the physician should be asked whether the diagnosis should be added." (Source [facility]oding [facility] 2 QTR90. p3-4) DOMINICK
--- NOTE | 2022-07-07 06:00 | Coding Query ---
CODING QUERY To promote full compliance with coding requirements relating to patient care, provider participation is requested in all cases of a&p technician uncertainty. Please assist us with the question(s) below: Coding Question(s): Pt admitted with symptomatic Covid positive and elevated Troponin. Cardiology recommended 2 days of Heparin for the Troponin rise.. Please document, if known or suspected the etiology of the elevated Troponin. Thanks for your help. Eduardo Weldon [facility] Physician's Response(s): As per cardiology consult note - Demand ischemia in the setting of acute COVID-19 infectious process, direct inflammatory process, or ACS considered. Recommend 48 hours of IV heparin. Principal Diagnosis: "that condition established after study, to be chiefly responsible for occasioning the admission of the patient to the hospital for care." Co-Existing Principal Diagnosis: "when two or more diagnoses equally meet the criteria for principal diagnosis as determined by the circumstances of admission, diagnostic work up, and/or therapy provided, and the Alphabetic Index, Tabular List, or another coding guideline does not provide sequencing direction, any one of the diagnoses may be sequenced first." "When the physician has documented what appears to be a current diagnosis in the body of the record, but has not included the diagnosis in the final diagnostic statement, the physician should be asked whether the diagnosis should be added." (Source [facility] 2 QTR90. p3-4) DOMINICK
== END 2022-06-27 17:19 | disposition home or self-care (01) | DRG 178 ==
LOC: ED 09:51 → 2S 13:53